=== PATIENT | female | born 1990 | race African-American/Black ===

== ENCOUNTER 2019-08-22 04:41 | Inpatient (IN) | payer BC ==
[2019-08-22] MEDS ORDERED: Lidocaine 1% 50 ML MDV INJECT ONE (07:52)
[2019-08-22] MEDS ORDERED: Sodium Chloride 0.9% 10 ML Syringe FLUSH PRN (07:52)
[2019-08-22] MEDS ORDERED: Ondansetron 4 MG/2 ML SDV IVPUSH PRN (07:52)
[2019-08-22] MEDS ORDERED: Oxytocin/Lactated Ringers 10 UNIT/1,000 ML BAG IV SCH ×2 (08:00)
--- NOTE | 2019-08-22 08:15 | PCM.LDHP ---
L&D History of Present Illness - General Date of Service: 08/22/19 Admit Problem/Dx: Admission Diagnosis/Problem Admission Diagnosis/Problem 08/22/19 08:05 Elective induction of labor Source of Information: Patient History Limitations: Reports: Language Barrier (speaks pretty good spanish, but some limitation there) - History of Present Illness Introduction:: 29 yo female at 39 weeks gestation, admitted for elective induction of labor. EDC confirmed by ultrasound at 9 weeks gestation. She was treated for chlamydia in December 2018 and had a test of cure. Her GC/CT was again negative . The rest of her infection testing was negative . She is positive for GBS. Her blood type is B+, 1 hour glucola wnl. She has had mild anemia with her and has not been consistent taking her vitamins. She has had a flu shot and Tdap with this . Last US on 08/03/19 gave EFW at 6 lb 2 oz. Her last she delivered a baby girl at 8 lb 1oz at 40 weeks gestation. She plans to breastfeed with her baby and did breastfeed with her last baby. Patient has had bronchitis and Beta strep pharyngitis and has been on Zithromax initially and then amoxicillin for the strep pharyngitis over this past week. She is feeling better. She denies feeling contractions and membranes are intact on admission today. Will plan cytotec vaginally for cervical ripening and induction and proceed to pitocin IV when appropriate. Will cover with Pen G IV for GBS prophylaxis. - Related Data Allergies/Adverse Reactions: Allergies Allergy/AdvReac Type Severity Reaction Status Date / Time No Known Allergies Allergy Verified 08/22/19 08:08 Past Medical History HEENT History: Reports: Other (See Below) (strep pharyngitis) Respiratory History: Reports: Other (See Below) (Bronchitis, treated last week.) : 2 Para: 1 LMP (Approximate): Other OB/BYN History: First baby delivered at 40 weeks gestation by . She had SROM and then induced. Baby girl 8 lb 1 oz. Breastfed - Infectious Disease History Infectious Disease History: Reports: Other (See Below) (Chlamydia in 12/2018) Social & Family History - Tobacco Use Smoking Status *Q: Never Smoker - Alcohol Use Alcohol Use History: No - Recreational Drug Use Recreational Drug Use: No Drug Use in Last 12 Months: No - Living Situation & Occupation Living situation: Reports: Occupation: Employed H&P Review of Systems - Review of Systems: Review Of Systems: See Below General: Reports: No Symptoms HEENT: Reports: No Symptoms Pulmonary: Reports: Cough Cardiovascular: Reports: No Symptoms Gastrointestinal: Reports: No Symptoms Genitourinary: Reports: No Symptoms Musculoskeletal: Reports: No Symptoms Skin: Reports: No Symptoms Psychiatric: Reports: No Symptoms Neurological: Reports: No Symptoms Hematologic/Lymphatic: Reports: Anemia Immunologic: Reports: No Symptoms L&D Exam - Exam Exam: See Below - OB Specific Contraction Duration (sec): No contractions at this time Movement: Active Heart Tones: Present Heart Tones per Min: 135 Heart Rate (FHR) Variability: Moderate (6-25 bmp) Presentation: Vertex Estimated Weight: 7 lb - Monae Score Monae Score Cervix Position: Midposition Monae Score Consistency: Medium Monae Score Effacement: 0-30% Monae Score Dilation: Closed Monae Score Infant's Station: -3 Monae Score Total: 2 - Exam General: Alert, Oriented, Cooperative HEENT: Pupils Equal Neck: Supple, Trachea Midline Lungs: Clear to Auscultation, Normal Respiratory Effort Cardiovascular: Regular Rate, Regular Rhythm GI/Abdominal Exam: Soft, Non-Tender Rectal Exam: Deferred Genitourinary: Enlarged uterus Back Exam: Normal Inspection, Full Range of Motion Extremities: Normal Inspection, No Pedal Edema Skin: Warm, Dry, Intact Neurological: Cranial Nerves Intact Psychiatric: Alert, Normal Affect, Normal Mood - Problem List (1) 39 weeks gestation of SNOMED Code(s): 52093133 ICD Code: Z3A.39 - 39 WEEKS GESTATION OF Status: Acute Current Visit: Yes (2) Encounter for elective induction of labor SNOMED Code(s): 989866835 ICD Code: Z34.90 - ENCNTR FOR SUPRVSN OF NORMAL , UNSP, UNSP TRIMESTER Status: Acute Current Visit: Yes (3) Group B streptococcal infection during SNOMED Code(s): 554354363 ICD Code: O98.819 - OTH MATERNAL INFEC/PARASTC DISEASES COMP PREG, UNSP TRI; B95.1 - STREPTOCOCCUS, GROUP B, CAUSING DISEASES CLASSD ELSWHR Status: Acute Current Visit: Yes Problem List Initiated/Reviewed/Updated: Yes Orders Last 24hrs: Active Orders 24 hr Category Date Time Status Activity as Tolerated [RC] PFP Care 08/22/19 07:52 Ordered Communication Order [RC] ASDIRECTED Care 08/22/19 07:52 Ordered Heart Tones [RC] ASDIRECTED Care 08/22/19 07:53 Ordered Non Stress Test [RC] PER UNIT ROUTINE Care 08/22/19 07:52 Ordered Notify Provider [RC] PFP Care 08/22/19 07:52 Ordered Notify Provider [RC] PRN Care 08/22/19 07:52 Ordered Peripheral IV Care [RC] . DIRECTED Care 08/22/19 07:53 Ordered Vital Signs [RC] PER UNIT ROUTINE Care 08/22/19 07:52 Ordered Regular Diet [DIET] Diet 08/22/19 Breakfast Ordered CBC W/O DIFF,HEMOGRAM [HEME] Stat Lab 08/22/19 07:52 Ordered RAPID PLASMA REAGIN,RPR [CHEM] Routine Lab 08/22/19 07:52 Ordered TYPE AND SCREEN [BBK] Stat Lab 08/22/19 07:52 Ordered Lactated Ringers [Ringers, Lactated] 1,000 ml Med 08/22/19 08:00 Ordered IV ASDIRECTED Lidocaine 1% [Xylocaine 1%] Med 08/22/19 07:52 Once 20 ml INJECT ONETIME ONE Ondansetron [Zofran] Med 08/22/19 07:52 Ordered 4 mg IVPUSH Q4H PRN Oxytocin/Lactated Ringers [Pitocin in LR 10 Units/1,000 Med 08/22/19 08:00 Ordered ML] 10 unit in 1,000 ml IV .CONTINUOUS Oxytocin/Lactated Ringers [Pitocin in LR 10 Units/1,000 Med 08/22/19 08:00 Ordered ML] 10 unit in 1,000 ml IV TITRATE Penicillin G Potassium [Pfizerpen] 2.5 millunits Med 08/22/19 08:00 Ordered Sodium Chloride 0.9% [Normal Saline] 100 ml IV Q4H Penicillin G Potassium [Pfizerpen] 5 millunits Med 08/22/19 08:00 Ordered Sodium Chloride 0.9% [Normal Saline] 100 ml IV ONETIME Sodium Chloride 0.9% [Saline Flush] Med 08/22/19 07:52 Ordered 10 ml FLUSH ASDIRECTED PRN miSOPROStoL [Cytotec] Med 08/22/19 08:15 Ordered 25 mcg VAG Q4H Electronic Heart Tones Ext w TOCO [WOMSER] Oth 08/22/19 07:52 Ordered Routine Electronic Heart Tones Internal [WOMSER] Per Unit Oth 08/22/19 07:52 Ordered Routine Peripheral IV Insertion Adult [OM.PC] Routine Oth 08/22/19 07:52 Ordered Resuscitation Status Routine Resus Stat 08/22/19 07:52 Ordered Medication Orders Lactated Ringer's (Ringers, Lactated) 1,000 mls @ 100 mls/hr IV ASDIRECTED JOSH Oxytocin/Lactated Ringer's (Pitocin In Lr 10 Units/1,000 Ml) 10 unit in 1,000 mls @ 12 mls/hr IV TITRATE JOSH; Protocol Oxytocin/Lactated Ringer's (Pitocin In Lr 10 Units/1,000 Ml) 10 unit in 1,000 mls @ 500 mls/hr IV .CONTINUOUS JOSH Penicillin G Potassium 5 (millunits/ Sodium Chloride) 100 mls @ 55 mls/hr IV ONETIME JOSH Penicillin G Potassium 2.5 (millunits/ Sodium Chloride) 100 mls @ 55 mls/hr IV Q4H JOSH Lidocaine HCl (Xylocaine 1%) 20 ml INJECT ONETIME ONE Stop: 08/22/19 07:53 Ondansetron HCl (Zofran) 4 mg IVPUSH Q4H PRN PRN Reason: Nausea/Vomiting Sodium Chloride (Saline Flush) 10 ml FLUSH ASDIRECTED PRN PRN Reason: Keep Vein Open Assessment/Plan Comment:: 29 yo at 39 weeks gestation admitted for elective induction of labor. GBS positive. Plan: Cytotec for cervical ripening and then IV pitocin when appropriate. Pen G IV per protocol for GBS prophylaxis Patient is not sure about epidural. Plans to breastfeed.
[2019-08-22] MEDS ORDERED: Penicillin G Potassium 5 MILLUNITS in Sodium Chloride 0.9% 100 ML IV SCH (08:30)
[2019-08-22] MEDS: Misoprostol 25 MCG (1/4 of 100 MCG) Tab VAG SCH ×3 (09:01→17:45)
--- NOTE | 2019-08-22 11:48 | PCM.PREANE ---
Preanesthetic Assessment - Anesthesia/Transfusion/Family Hx Anesthesia History: No Prior Anesthesia Transfusion History: No Prior Transfusion(s) Intubation History: Unknown - Review of Systems General: No Symptoms Pulmonary: No Symptoms Cardiovascular: No Symptoms Gastrointestinal: No Symptoms Neurological: No Symptoms Other: Reports: None - Physical Assessment NPO Status Date: 08/22/19 NPO Status Time: 11:00 Vital Signs: Last Vital Signs Temp 97.6 F 08/22/19 07:52 Pulse 105 H 08/22/19 07:52 Resp 16 08/22/19 07:52 BP 111/67 08/22/19 07:52 Pulse Ox 100 08/22/19 07:52 Height: 1.68 m Weight: 81.647 kg ASA Class: 2 Thyro-Mental Finger Breadths: 3 Mouth Opening Finger Breadths: 3 ROM/Head Extension: Full Lungs: Clear to Auscultation, Normal Respiratory Effort Cardiovascular: Regular Rate, Regular Rhythm - Lab Values: Laboratory Last Values WBC 5.32 K/mm3 (3.98-10.04) 08/22/19 08:20 RBC 3.78 M/mm3 (3.98-5.22) L 08/22/19 08:20 Hgb 10.6 gm/dl (11.2-15.7) L 08/22/19 08:20 Hct 34.1 % (34.1-44.9) 08/22/19 08:20 MCV 90.2 fl (79.4-94.8) 08/22/19 08:20 MCH 28.0 pg (25.6-32.2) 08/22/19 08:20 MCHC 31.1 g/dl (32.2-35.5) L 08/22/19 08:20 RDW Std Deviation 49.0 fL (36.4-46.3) H 08/22/19 08:20 Plt Count 206 K/mm3 (182-369) 08/22/19 08:20 MPV 11.0 fl (9.4-12.3) 08/22/19 08:20 Blood Type B POSITIVE 08/22/19 08:20 Gel Antibody Screen Negative 08/22/19 08:20 - Allergies Allergies/Adverse Reactions: Allergies Allergy/AdvReac Type Severity Reaction Status Date / Time No Known Allergies Allergy Verified 08/22/19 08:08 - Acknowledgements Anesthesia Type Planned: Epidural Pt an Appropriate Candidate for the Planned Anesthesia: Yes Alternatives and Risks of Anesthesia Discussed w Pt/Guardian: Yes Pt/Guardian Understands and Agrees with Anesthesia Plan: Yes PreAnesthesia Questionnaire HEENT History: Reports: Other (See Below) (strep pharyngitis) Other HEENT History: Sinus congestion/cold, treated Respiratory History: Reports: Other (See Below) (Bronchitis, treated last week.) Genitourinary History: Reports: STD, Other (See Below) Other Genitourinary History: Chlamydia in 11/10 and 01/10, treated, along with treated Other OB/BYN History: First baby delivered at 40 weeks gestation by . She had SROM and then induced. Baby girl 8 lb 1 oz. Breastfed Hematologic History: Reports: Anemia - Infectious Disease History Infectious Disease History: Reports: Other (See Below) (Chlamydia in 12/2018) Other Infectious Disease History: Chlamydia in past year - Past Surgical History HEENT Surgical History: Reports: None Female Surgical History: Reports: None - SUBSTANCE USE Smoking Status *Q: Never Smoker Tobacco Use Within Last Twelve Months: No Recreational Drug Use History: No - HOME MEDS Home Medications: Home Meds Amoxicillin 500 mg PO TID 08/22/19 [History] Ferrous Fumarate/Vitamin C [Vitron-C] 125 mg PO 08/22/19 [History] Fluticasone Propionate 50 mcg NASBOTH 08/22/19 [History] Vits #93/Iron Fum/FA [ Formula Tablet] 1 each PO 08/22/19 [ History] - CURRENT (IN HOUSE) MEDS Current Meds: Current Medications Lactated Ringer's (Ringers, Lactated) 1,000 mls @ 100 mls/hr IV ASDIRECTED JOSH Oxytocin/Lactated Ringer's (Pitocin In Lr 10 Units/1,000 Ml) 10 unit in 1,000 mls @ 12 mls/hr IV TITRATE JOSH; Protocol Oxytocin/Lactated Ringer's (Pitocin In Lr 10 Units/1,000 Ml) 10 unit in 1,000 mls @ 500 mls/hr IV .CONTINUOUS JOSH Penicillin G Potassium 2.5 (millunits/ Sodium Chloride) 100 mls @ 55 mls/hr IV Q4H JOSH Misoprostol (Cytotec) 25 mcg VAG Q4H JOSH Stop: 08/22/19 16:16 Last Admin: 08/22/19 09:01 Dose: 25 mcg Ondansetron HCl (Zofran) 4 mg IVPUSH Q4H PRN PRN Reason: Nausea/Vomiting Sodium Chloride (Saline Flush) 10 ml FLUSH ASDIRECTED PRN PRN Reason: Keep Vein Open Discontinued Medications Penicillin G Potassium 5 (millunits/ Sodium Chloride) 100 mls @ 55 mls/hr IV ONETIME [facility] Last Admin: 08/22/19 08:53 Dose: 55 mls/hr Lidocaine HCl (Xylocaine 1%) 20 ml INJECT ONETIME ONE Stop: 08/22/19 07:53
[2019-08-22 12:27] LABS: C. TRACHOMATIS BY PCR NOT DETECTED; N. GONORRHOEAE BY PCR NOT DETECTED
[2019-08-22] MEDS: Penicillin G Potassium 2.5 MILLUNITS in Sodium Chloride 0.9% 100 ML IV SCH ×3 (13:02→22:30)
--- NOTE | 2019-08-22 14:22 | PCM.SN ---
- Free Text/Narrative Note: Patient was checked about 1 pm and cervix ft, soft station -3. SEcond dose of cytotec 25 mcg pv placed. Monitor is showing contractions every 2 to 4 minutes , but patient not feeling them. Category I strip. Membranes still intact. Second dose of Pen G IV infusing now. Since the second dose of cytotec she has been starting to feel more contractions. O/E: Cervix anterior, soft, 1 cm and 75% effaced, vertex and station -1. A: Latent phase of labor, starting to see some cervical change. P: Expectant management - will plan to transition to pitocin IV if needed at 1700 and will do AROM to augment at that time as well. She would like an epidural when needed. Continue Pen G IV for prophylaxis. Patient plans to breast feed.
[2019-08-22] MEDS ORDERED: ePHEDrine 50 MG/ML SDV IVPUSH PRN (15:40)
[2019-08-22] MEDS ORDERED: diphenhydrAMINE 50 MG/ML SDV IVPUSH PRN (15:40)
[2019-08-22] MEDS ORDERED: fentaNYL 100 MCG/2 ML SDV EPIDUR PRN (15:40)
[2019-08-22] MEDS ORDERED: Bupivacaine/fentaNYL/NS 100 ML Bag EPIDUR PRN (15:40)
[2019-08-22] MEDS: Lactated Ringers 1,000 ML IV SCH ×3 (17:59→23:56)
--- NOTE | 2019-08-22 18:24 | PCM.SN ---
- Free Text/Narrative Note: Patient is getting more uncomfortable with her contractions. WE just started pitocin at 2mU/min. Contractions are every 2-3 minutes. She is not complaining of pain, just pressure. She is on her 3rd Penicillin G IV dose. O/E: Cervix is soft, 2 cm, 75% effaced, vtx and station -1. AROM done to augment labor and small amount of clear fluid drained. A: Latent phase of labor. GBS positive, getting Pen G IV. Has had 2 doses of cytotec 25 mcg P: Pitocin per protocol for induction. AROM to augment. Expectant management, anticipate vaginal delivery. Continue Pen G IV q4h until delivery. Epidural when appropriate. Plan skin to skin after delivery and mom wants to breastfeed.
[2019-08-23] MEDS: Penicillin G Potassium 2.5 MILLUNITS in Sodium Chloride 0.9% 100 ML IV SCH ×2 (02:30→06:21)
[2019-08-23] MEDS ORDERED: Lidocaine 1.5% with EPINEPHrine 1:200,000 5 ML Amp ONE (04:00)
--- NOTE | 2019-08-23 05:26 | PCM.DEL ---
L & D Note - General Info Date of Service: 08/23/19 Mother's Due Date: 08/29/19 - Delivery Note Labor: Augmented by ARM, Induced by Oxytocin Cervical Ripening Method: Misoprostil Delivery Outcome: Livebirth Infant Delivery Method: Spontaneous Vaginal Delivery-Single Delivery Mode: Spontaneous Presentation: Left Occiput Anterior (PHILLIP) Nuchal Cord: None Anesthesia Type: Epidural Amniotic Fluid Description: Clear Episiotomy Type: None Laceration: None Placenta: Intact, Spontaneous Cord: 3 Vessels Estimated Blood Loss: 100 Resuscitation Needed: No : Bulb Syringe, Stimulated, Warmed, [place] Used Provider: Nora Chaney Score 1 min: 9 Score 5 min: 9 Delivery Comments (Free Text/Narrative):: 29 yo female at 39 weeks gestation, admitted for elective induction of labor. EDC confirmed by ultrasound at 9 weeks gestation. She was treated for chlamydia in December 2018 and had a test of cure. Her GC/CT was again negative . The rest of her infection testing was negative . She is positive for GBS. Her blood type is B+, 1 hour glucola wnl. She has had mild anemia with her and has not been consistent taking her vitamins. She has had a flu shot and Tdap with this . Last US on 08/03/19 gave EFW at 6 lb 2 oz. Her last she delivered a baby girl at 8 lb 1oz at 40 weeks gestation. She plans to breastfeed with her baby and did breastfeed with her last baby. Patient has had bronchitis and Beta strep pharyngitis and has been on Zithromax initially and then amoxicillin for the strep pharyngitis over this past week. She received 2 doses of cytotec 25 mcg pv and then started on Pitocin IV for induction. AROM was performed about 1815 to augment labor and clear fluid drained. She received 5 doses of Penicillin G IV for GBS prophylaxis. Pitocin was increased to a maximum of 14 mu/min. Fetus tolerated first stage of labor well without decels. She received an epidural at about 2345 and had good relief with that and was able to sleep. She was complete at 0418 and I was called to come in. She was comfortable and not feeling pushy. When I arrived, she was prepped and set up to start pushing. She started pushing at 0436 and pushed very well. Baby girl delivered over an intact perineum in PHILLIP position at 0441. There was no nuchal cord. She cried on the way out, was vigorous with good tone. Apgars 9 and 9 at 1 and 5 minutes respectively. She was dried with towel, stimulated, mouth and nose suctioned with bulb suction. She was placed skin to skin on mother's abdomen and cord was clamped and cut after it stopped pulsating. There were 3 vessels in the cord. She was latched to the breast and nursing by 0500. EBL was 100 ml. Fundus was firm. Pitocin IV infusion was started after delivery of baby. Both Mom and baby were left in the delivery room in stable condition. Induction Criteria - Monae Score Monae Score Dilation: Closed Monae Score Effacement: 0-30% Monae Score 's Station: -3 Monae Score Consistency: Medium Monae Score Cervix Position: Midposition Monae Score Total: 2 Monae Score Presenting Part: Reports: Cephalic - Induction Gestational Age >/= 39 wks: Yes Estimated Pelvis: Reports: Adequate Reassuring Monitoring Strip: Yes Absence of Tachy Systole: Yes - Augmentation Estimated Pelvis: Reports: Adequate Weight Estimated:: Reports: AGA Reassuring Monitoring Strip: Yes Absence of Tachy Systole: Yes - General Info Date of Service: 08/23/19 Admission Dx/Problem (Free Text): Admission Diagnosis/Problem Admission Diagnosis/Problem 08/22/19 08:05 Elective induction of labor Functional Status: Reports: Pain Controlled - Review of Systems General: Reports: No Symptoms HEENT: Reports: No Symptoms Pulmonary: Reports: Cough Cardiovascular: Reports: No Symptoms Gastrointestinal: Reports: No Symptoms Genitourinary: Reports: No Symptoms Musculoskeletal: Reports: No Symptoms Skin: Reports: No Symptoms Neurological: Reports: No Symptoms Psychiatric: Reports: No Symptoms - Patient Data Vitals - Most Recent: Last Vital Signs Temp 36.4 C 08/22/19 07:52 Pulse 105 H 08/22/19 07:52 Resp 16 08/22/19 07:52 BP 111/67 08/22/19 07:52 Pulse Ox 100 08/22/19 07:52 Weight - Most Recent: 81.647 kg I&O - Last 24 Hours: Intake & Output 08/22/19 08/22/19 08/23/19 14:59 22:59 06:59 Intake Total 100 200 100 Balance 100 200 100 Lab Results Last 24 Hours: Laboratory Results - last 24 hr 08/22/19 08/22/19 08/22/19 Range/Units 08:20 08:20 08:20 WBC 5.32 (3.98-10.04) K/mm3 RBC 3.78 L (3.98-5.22) M/mm3 Hgb 10.6 L (11.2-15.7) gm/dl Hct 34.1 (34.1-44.9) % MCV 90.2 (79.4-94.8) fl MCH 28.0 (25.6-32.2) pg MCHC 31.1 L (32.2-35.5) g/dl RDW Std Deviation 49.0 H (36.4-46.3) fL Plt Count 206 (182-369) K/mm3 MPV 11.0 (9.4-12.3) fl RPR Non-reactive (NONREACTIVE) C trachomatis DNA (PCR) N gonorrhoeae DNA (PCR) Blood Type B POSITIVE Gel Antibody Screen Negative 08/22/19 Range/Units 10:20 WBC (3.98-10.04) K/mm3 RBC (3.98-5.22) M/mm3 Hgb (11.2-15.7) gm/dl Hct (34.1-44.9) % MCV (79.4-94.8) fl MCH (25.6-32.2) pg MCHC (32.2-35.5) g/dl RDW Std Deviation (36.4-46.3) fL Plt Count (182-369) K/mm3 MPV (9.4-12.3) fl RPR (NONREACTIVE) C trachomatis DNA (PCR) Not detected N gonorrhoeae DNA (PCR) Not detected Blood Type Gel Antibody Screen Med Orders - Current: Current Medications Diphenhydramine HCl (Benadryl) 25 mg IVPUSH Q6H PRN PRN Reason: pruritis Ephedrine Sulfate (Ephedrine Sulfate) 5 mg IVPUSH ASDIRECTED PRN PRN Reason: Hypotension Fentanyl (Sublimaze) 100 mcg EPIDUR Q3H PRN PRN Reason: Pain Last Admin: 08/22/19 23:16 Dose: 100 mcg Fentanyl/Bupivacaine HCl (Fentanyl/Bupivacaine/Ns 2 Mcg-0.125% 100 Ml) 100 ml EPIDUR ASDIRECTED PRN PRN Reason: Pain Last Admin: 08/22/19 23:14 Dose: 100 ml Lactated Ringer's (Ringers, Lactated) 1,000 mls @ 100 mls/hr IV ASDIRECTED JOSH Last Admin: 08/22/19 23:56 Dose: 100 mls/hr Oxytocin/Lactated Ringer's (Pitocin In Lr 10 Units/1,000 Ml) 10 unit in 1,000 mls @ 12 mls/hr IV TITRATE JOSH; Protocol Last Titration: 08/23/19 02:30 Dose: 14 munits/min, 84 mls/hr Oxytocin/Lactated Ringer's (Pitocin In Lr 10 Units/1,000 Ml) 10 unit in 1,000 mls @ 500 mls/hr IV .CONTINUOUS JOSH Penicillin G Potassium 2.5 (millunits/ Sodium Chloride) 100 mls @ 55 mls/hr IV Q4H [facility] Last Admin: 08/23/19 02:30 Dose: 55 mls/hr Ondansetron HCl (Zofran) 4 mg IVPUSH Q4H PRN PRN Reason: Nausea/Vomiting Sodium Chloride (Saline Flush) 10 ml FLUSH ASDIRECTED PRN PRN Reason: Keep Vein Open Discontinued Medications Penicillin G Potassium 5 (millunits/ Sodium Chloride) 100 mls @ 55 mls/hr IV ONETIME [facility] Last Admin: 08/22/19 08:53 Dose: 55 mls/hr Lidocaine HCl (Xylocaine 1%) 20 ml INJECT ONETIME ONE Stop: 08/22/19 07:53 Misoprostol (Cytotec) 25 mcg VAG Q4H [facility] Stop: 08/22/19 16:16 Last Admin: 08/22/19 17:45 Dose: Not Given - Exam General: Alert, Oriented, Cooperative, No Acute Distress HEENT: Pupils Equal, Mucous Membr. Moist/[place] Neck: Supple Lungs: Clear to Auscultation, Normal Respiratory Effort Cardiovascular: Regular Rate, Regular Rhythm GI/Abdominal Exam: Normal Bowel Sounds, Soft (Female) Exam: Enlarged Uterus, Fundal Height (1 below umbilicus), Vaginal Bleeding Back Exam: Normal Inspection, Full Range of Motion Extremities: Normal Inspection, Normal Range of Motion, No Pedal Edema Skin: Warm, Dry, Intact Neurological: No New Focal Deficit Psy/Mental Status: Alert, Normal Affect, Normal Mood - Problem List & Annotations (1) 39 weeks gestation of SNOMED Code(s): 17792147 Code(s): Z3A.39 - 39 WEEKS GESTATION OF Status: Acute Current Visit: Yes (2) Encounter for elective induction of labor SNOMED Code(s): 799702094 Code(s): Z34.90 - ENCNTR FOR SUPRVSN OF NORMAL , UNSP, UNSP TRIMESTER Status: Acute Current Visit: Yes (3) Group B streptococcal infection during SNOMED Code(s): 806801833 Code(s): O98.819 - OTH MATERNAL INFEC/PARASTC DISEASES COMP PREG, UNSP TRI; B95.1 - STREPTOCOCCUS, GROUP B, CAUSING DISEASES CLASSD ELSWHR Status: Acute Current Visit: Yes (4) Spontaneous vaginal delivery SNOMED Code(s): 476535918 Code(s): O80 - ENCOUNTER FOR FULL-TERM UNCOMPLICATED DELIVERY Status: Acute Current Visit: Yes - Problem List Review Problem List Initiated/Reviewed/Updated: Yes - My Orders Last 24 Hours: My Active Orders 08/22/19 07:52 Activity as Tolerated [RC] PFP Communication Order [RC] ASDIRECTED Notify Provider [RC] PFP Notify Provider [RC] PRN Vital Signs [RC] PER UNIT ROUTINE Ondansetron [Zofran] 4 mg IVPUSH Q4H PRN Sodium Chloride 0.9% [Saline Flush] 10 ml FLUSH ASDIRECTED PRN Electronic Heart Tones Ext w TOCO [WOMSER] Routine Electronic Heart Tones Internal [WOMSER] Per Unit Routine Peripheral IV Insertion Adult [OM.PC] Routine Resuscitation Status Routine 08/22/19 07:53 Heart Tones [RC] ASDIRECTED Peripheral IV Care [RC] . DIRECTED 08/22/19 08:00 Lactated Ringers [Ringers, Lactated] 1,000 ml IV ASDIRECTED Oxytocin/Lactated Ringers [Pitocin in LR 10 Units/1,000 ML] 10 unit in 1,000 ml IV .CONTINUOUS Oxytocin/Lactated Ringers [Pitocin in LR 10 Units/1,000 ML] 10 unit in 1,000 ml IV TITRATE 08/22/19 09:35 Patient Status [ADT] Routine 08/22/19 12:30 Penicillin G Potassium [Pfizerpen] 2.5 millunits Sodium Chloride 0.9% [Normal Saline] 100 ml IV Q4H 08/22/19 Breakfast Regular Diet [DIET] 08/23/19 05:01 Patient Status Manage Transfer [TRANSFER] Routine - Assessment Assessment:: Spontaneous vaginal delivery after induction of labor. Perineum intact. Minimal bleeding. . - Plan Plan:: 29 yo at 39 weeks gestation admitted for elective induction of labor. GBS positive. Plan: Cytotec for cervical ripening and then IV pitocin when appropriate. Pen G IV per protocol for GBS prophylaxis Patient is not sure about epidural. Plans to breastfeed. 08/23/19: Routine care. support and education.
[2019-08-23] MEDS ORDERED: Simethicone 80 MG Tab.Chew PO PRN (05:51)
[2019-08-23] MEDS ORDERED: Witch Hazel Medicated Pads 40/Jar TOP PRN (05:51)
[2019-08-23] MEDS ORDERED: Docusate Sodium 100 MG Cap PO PRN (05:51)
[2019-08-23] MEDS ORDERED: Acetaminophen 325 MG Tab PO PRN (05:51)
[2019-08-23] MEDS ORDERED: Ibuprofen 800 MG Tab PO PRN (05:51)
[2019-08-23] MEDS ORDERED: Benzocaine/Menthol 20%-0.5% Spray 56 GM Canister TOP PRN (05:51)
[2019-08-23] MEDS: Prenatal Multivitamin with Calcium/Folic Acid/Iron Tab PO SCH (08:33)
[2019-08-23] MEDS: Ferrous Sulfate 324 MG Tab.EC PO SCH ×2 (08:33→17:16)
--- NOTE | 2019-08-24 01:36 | PCM48HPAN ---
Post Anesthesia Note - EVALUATION WITHIN 48HRS OF ANESTHETIC Vital Signs in Normal Range: Yes Patient Participated in Evaluation: Yes Respiratory Function Stable: Yes Airway Patent: Yes Cardiovascular Function Stable: Yes Hydration Status Stable: Yes Pain Control Satisfactory: Yes Nausea and Vomiting Control Satisfactory: Yes Mental Status Recovered: Yes Vital Signs: Last Vital Signs Temp 37.1 C 08/23/19 20:57 Pulse 61 08/23/19 20:57 Resp 14 08/23/19 20:57 BP 126/78 08/23/19 20:57 Pulse Ox 98 08/23/19 20:57
[2019-08-24] MEDS: Ferrous Sulfate 324 MG Tab.EC PO SCH (07:51)
[2019-08-24] MEDS: Prenatal Multivitamin with Calcium/Folic Acid/Iron Tab PO SCH (09:11)
--- NOTE | 2019-08-24 16:26 | PCM.DCSUM1 ---
Discharge Summary - Hospital Course Free Text/Narrative:: 29 yo female at 39 weeks gestation, admitted for elective induction of labor. EDC confirmed by ultrasound at 9 weeks gestation. She was treated for chlamydia in December 2018 and had a test of cure. Her GC/CT was again negative . The rest of her infection testing was negative . She is positive for GBS. Her blood type is B+, 1 hour glucola wnl. She has had mild anemia with her and has not been consistent taking her vitamins. She has had a flu shot and Tdap with this . Last US on 08/03/19 gave EFW at 6 lb 2 oz. Her last she delivered a baby girl at 8 lb 1oz at 40 weeks gestation. She plans to breastfeed with her baby and did breastfeed with her last baby. Patient has had bronchitis and Beta strep pharyngitis and has been on Zithromax initially and then amoxicillin for the strep pharyngitis over this past week. She received 2 doses of cytotec 25 mcg pv and then started on Pitocin IV for induction. AROM was performed about 1815 to augment labor and clear fluid drained. She received 5 doses of Penicillin G IV for GBS prophylaxis. Pitocin was increased to a maximum of 14 mu/min. Fetus tolerated first stage of labor well without decels. She received an epidural at about 2345 and had good relief with that and was able to sleep. She was complete at 0418 and I was called to come in. She was comfortable and not feeling pushy. When I arrived, she was prepped and set up to start pushing. She started pushing at 0436 and pushed very well. Baby girl delivered over an intact perineum in PHILLIP position at 0441. There was no nuchal cord. She cried on the way out, was vigorous with good tone. Apgars 9 and 9 at 1 and 5 minutes respectively. She was dried with towel, stimulated, mouth and nose suctioned with bulb suction. She was placed skin to skin on mother's abdomen and cord was clamped and cut after it stopped pulsating. There were 3 vessels in the cord. She was latched to the breast and nursing by 0500. EBL was 100 ml. Fundus was firm. Pitocin IV infusion was started after delivery of baby. Both Mom and baby were left in the delivery room in stable condition. Patient has done well with her bleeding settling and only needing to use ibuprofen for cramping. She is and that is going well. She has noticed some swelling in her ankles, but denies pain in her calves or shortness of breath. She still has a bit of a cough from her bronchitis that started last week. She is bonding well with her baby. Diagnosis: Stroke: No Modified Cayla Scale: No Symptoms at All Modified Cayla Scale Score: 0 - Discharge Data Discharge Date: 08/24/19 Discharge Disposition: Home, Self-Care 01 Condition: Good - Referral to Home Health Primary Care Physician: Nora Chaney MD - Discharge Diagnosis/Problem(s) (1) 39 weeks gestation of SNOMED Code(s): 55543113 ICD Code: Z3A.39 - 39 WEEKS GESTATION OF Status: Acute Current Visit: Yes (2) Encounter for elective induction of labor SNOMED Code(s): 833344659 ICD Code: Z34.90 - ENCNTR FOR SUPRVSN OF NORMAL , UNSP, UNSP TRIMESTER Status: Acute Current Visit: Yes (3) Group B streptococcal infection during SNOMED Code(s): 092950524 ICD Code: O98.819 - OTH MATERNAL INFEC/PARASTC DISEASES COMP PREG, UNSP TRI; B95.1 - STREPTOCOCCUS, GROUP B, CAUSING DISEASES CLASSD ELSWHR Status: Acute Current Visit: Yes (4) Spontaneous vaginal delivery SNOMED Code(s): 211602491 ICD Code: O80 - ENCOUNTER FOR FULL-TERM UNCOMPLICATED DELIVERY Status: Acute Current Visit: Yes (5) Mother currently breast-feeding SNOMED Code(s): 765215608 ICD Code: Z39.1 - ENCOUNTER FOR CARE AND EXAMINATION OF LACTATING MOTHER Status: Acute Current Visit: Yes - Patient Instructions Diet: Usual Diet as Tolerated (Push fluids, try to increase foods high in iron.) Feeding Instructions: Feed on demand and try to feed at least every 2 to 3 hours Activity: As Tolerated Driving: May Drive Today Showering/Bathing: May Shower Notify Provider of: Fever, Increased Pain, Swelling and Redness, Nausea and/or Vomiting - Discharge Plan *PRESCRIPTION DRUG MONITORING PROGRAM REVIEWED*: No *COPY OF PRESCRIPTION DRUG MONITORING REPORT IN PATIENT TAJ: No Home Medications: Home Meds Ferrous Fumarate/Vitamin C [Vitron-C] 125 mg PO 08/22/19 [History] Vits #93/Iron Fum/FA [ Formula Tablet] 1 each PO 08/22/19 [ History] Acetaminophen [Tylenol] 650 mg PO Q4H PRN tablet 08/24/19 [Rx] Benzocaine/Menthol [Dermoplast Pain Relief [place]] 1 applic TOP ASDIRECTED PRN canister 08/24/19 [Rx] Docusate Sodium [Colace] 100 mg PO BID PRN cap 08/24/19 [Rx] Ibuprofen [Motrin] 800 mg PO Q6H PRN tablet 08/24/19 [Rx] lee Keller [Tucks] 1 pad TOP ASDIRECTED PRN pad 08/24/19 [Rx] Oxygen Therapy Mode: Room Air Patient Handouts: Vaginal Delivery, Vaginal Delivery, Care After Referrals: Nora Chaney MD [Primary Care Provider] - - Discharge Summary/Plan Comment DC Time >30 min.: No Discharge Summary/Plan Comment: 29 yo G2 now P2 who delivered baby girl by and elective induction of labor at 39 weeks. She had no perineal tear and did not have much bleeding after delivery. She was treated with IV Penicillin G IV for GBS prophylaxis and received a total of 5 doses. She has been exclusively and that has been going well. No cracking or bruising of her nipples. She denies headache or dizziness. Appetite has been good. She does have swelling in her ankles but no calf tenderness. Plan: Routine care. Continue ibuprofen 600-800 mg every 6 hours as needed for cramping. Continue vitamin and Iron supplement. Breastfeed on demand. Follow up in the clinic in 6 weeks for visit. - General Info Date of Service: 08/24/19 Admission Dx/Problem (Free Text: Admission Diagnosis/Problem Admission Diagnosis/Problem 08/22/19 08:05 Elective induction of labor Subjective Update: Patient is doing well. Her pain and cramping has been controlled with ibuprofen. Her bleeding is slowing and she denies passing clots. She has had a good appetite and is ambulating and voiding well. is going well. she is anxious to go home. Functional Status: Reports: Pain Controlled, Tolerating Diet, Ambulating, Urinating - Review of Systems General: Reports: No Symptoms HEENT: Reports: No Symptoms Pulmonary: Reports: Cough (cough is improving) Cardiovascular: Reports: No Symptoms Gastrointestinal: Reports: No Symptoms Genitourinary: Reports: No Symptoms Musculoskeletal: Reports: Back Pain (Mild back pain at epidural site) Skin: Reports: No Symptoms Neurological: Reports: No Symptoms Psychiatric: Reports: No Symptoms - Patient Data Vitals - Most Recent: Last Vital Signs Temp 36.3 C 08/24/19 15:49 Pulse 66 08/24/19 15:49 Resp 14 08/24/19 15:49 BP 119/85 08/24/19 15:49 Pulse Ox 98 08/24/19 15:49 Weight - Most Recent: 81.647 kg Med Orders - Current: Current Medications Acetaminophen (Tylenol) 650 mg PO Q4H PRN PRN Reason: mild pain or fever Benzocaine/Menthol (Dermoplast Pain Relief [place]) 0 gm TOP ASDIRECTED PRN PRN Reason: Perineal Comfort Measure Docusate Sodium (Colace) 100 mg PO BID PRN PRN Reason: Constipation Ferrous Sulfate (Ferrous Sulfate) 324 mg PO BIDMEALS [facility] Last Admin: 08/24/19 07:51 Dose: 324 mg Ibuprofen (Motrin) 800 mg PO Q6H PRN PRN Reason: Mild pain or fever Last Admin: 08/23/19 21:04 Dose: 800 mg Prenat Multivit/Forensic Manager/Iron/Folic Ac ( Plus Iron) 1 each PO DAILY [facility] Last Admin: 08/24/19 09:11 Dose: 1 each Simethicone (Simethicone) 80 mg PO Q4H PRN PRN Reason: Gas Sodium Chloride (Saline Flush) 10 ml FLUSH ASDIRECTED PRN PRN Reason: Keep Vein Open Witjason Keller (Tucks) 1 pad TOP ASDIRECTED PRN PRN Reason: Perineal Comfort Measure Discontinued Medications Diphenhydramine HCl (Benadryl) 25 mg IVPUSH Q6H PRN PRN Reason: pruritis Ephedrine Sulfate (Ephedrine Sulfate) 5 mg IVPUSH ASDIRECTED PRN PRN Reason: Hypotension Fentanyl (Sublimaze) 100 mcg EPIDUR Q3H PRN PRN Reason: Pain Last Admin: 08/22/19 23:16 Dose: 100 mcg Fentanyl/Bupivacaine HCl (Fentanyl/Bupivacaine/Ns 2 Mcg-0.125% 100 Ml) 100 ml EPIDUR ASDIRECTED PRN PRN Reason: Pain Last Admin: 08/22/19 23:14 Dose: 100 ml Lactated Ringer's (Ringers, Lactated) 1,000 mls @ 100 mls/hr IV ASDIRECTED JOSH Last Admin: 08/22/19 23:56 Dose: 100 mls/hr Oxytocin/Lactated Ringer's (Pitocin In Lr 10 Units/1,000 Ml) 10 unit in 1,000 mls @ 12 mls/hr IV TITRATE JOSH; Protocol Last Titration: 08/23/19 05:15 Dose: 250 mls/hr Oxytocin/Lactated Ringer's (Pitocin In Lr 10 Units/1,000 Ml) 10 unit in 1,000 mls @ 500 mls/hr IV .CONTINUOUS JOSH Penicillin G Potassium 5 (millunits/ Sodium Chloride) 100 mls @ 55 mls/hr IV ONETIME JOSH Last Admin: 08/22/19 08:53 Dose: 55 mls/hr Penicillin G Potassium 2.5 (millunits/ Sodium Chloride) 100 mls @ 55 mls/hr IV Q4H [facility] Last Admin: 08/23/19 06:21 Dose: Not Given Lidocaine HCl (Xylocaine 1%) 20 ml INJECT ONETIME ONE Stop: 08/22/19 07:53 Lidocaine/Epinephrine (Xylocaine-Mpf 1.5% W/Epinephrine 1:200,000) 5 ml .ROUTE .STK-MED ONE Stop: 08/23/19 04:01 Misoprostol (Cytotec) 25 mcg VAG Q4H [facility] Stop: 08/22/19 16:16 Last Admin: 08/22/19 17:45 Dose: Not Given Ondansetron HCl (Zofran) 4 mg IVPUSH Q4H PRN PRN Reason: Nausea/Vomiting - Exam General: Reports: Alert, Oriented, Cooperative, No Acute Distress HEENT: Reports: Pupils Equal, Mucous Membr. Moist/[place] Lungs: Reports: Clear to Auscultation, Normal Respiratory Effort Cardiovascular: Reports: Regular Rate, Regular Rhythm GI/Abdominal Exam: Normal Bowel Sounds, Soft (Female) Exam: Enlarged Uterus (Fundus 1 finger below U and firm), Vaginal Bleeding Rectal (Female) Exam: Deferred Back Exam: Reports: Normal Inspection (No bruising noted at epidural site. Mild tenderness to palpation in that area.) Extremities: Normal Inspection, Pedal Edema (1+ pitting at ankles bilaterally. No calf tenderness or masses palpable ) Skin: Reports: Warm, Dry, Intact Neurological: Reports: No New Focal Deficit Psy/Mental Status: Reports: Alert, Normal Affect, Normal Mood
== END 2019-08-24 18:05 | disposition home or self-care (01) | DRG 560 ==
LOC: JD.OB 04:41 → OBSVTOIN 08-23 04:41 → JD.OB 08-23 04:41
PROVIDERS: ADMIT Family Medicine; ATTEND Family Medicine
PROC: 10E0XZZ Delivery of Products of Conception, External Approach (ICD-10-PCS; principal; 2019-08-23)
PROC: 10907ZC Drainage of Amniotic Fluid, Therapeutic from Products of Conception, Via Natural or Artificial Opening (ICD-10-PCS; 2019-08-23)
PROC: 3E0P7VZ Introduction of Hormone into Female Reproductive, Via Natural or Artificial Opening (ICD-10-PCS; 2019-08-23)
PROC: 3E033VJ Introduction of Other Hormone into Peripheral Vein, Percutaneous Approach (ICD-10-PCS; 2019-08-23)
PROC: 3E0R3BZ Introduction of Anesthetic Agent into Spinal Canal, Percutaneous Approach (ICD-10-PCS; 2019-08-23)
DX: O99.824 Streptococcus B carrier state complicating childbirth (principal); Z3A.39 39 weeks gestation of pregnancy; Z37.0 Single live birth; Z79.899 Other long term (current) drug therapy; O99.02 Anemia complicating childbirth; D64.9 Anemia, unspecified
CPT/HCPCS: 36415; 51702; 59025; 59409; 85027; 86592; 86850; 86900; 86901; 87491; 87591; A9270-GY; J2540; J2590; J3010; J7050; J7120

== ENCOUNTER 2022-09-13 10:55 | Emergency (ER) | payer MEDICAID ==
[2022-09-13] MEDS ORDERED: Acetaminophen 325 MG Tab PO ONE (11:25)
[2022-09-13 12:06] LABS: CORONAVIRUS COVID-19 NAA NEGATIVE (NEGATIVE)
== END 2022-09-13 12:30 | disposition home or self-care (01) ==
LOC: JD.ED 10:55
DX: J02.0 Streptococcal pharyngitis (principal); Z20.822 Contact with and (suspected) exposure to COVID-19
CPT/HCPCS: 0240U; 81001; 87651; 99284; A9270; 99283

== ENCOUNTER 2022-10-24 11:35 | Emergency (ER) | payer MEDICAID | END 2022-10-24 12:53 | disposition home or self-care (01) | LOC: JD.ED 11:35 | DX: H10.023 Other mucopurulent conjunctivitis, bilateral (principal) | CPT/HCPCS: 99283 ==